=== PATIENT | female | born 1935 | race Caucasian/White ===

== ENCOUNTER 2017-05-29 11:53 | Emergency (ER) | payer MEDICARE, BC ==
[2017-05-29] MEDS ORDERED: NS 0.9% 1000 ML* 1,000 ML IV ONE (11:54)
--- NOTE | 2017-05-29 12:15 | RAD ---
INDICATION: Right-sided weakness COMPARISON: None. TECHNIQUE: Contiguous axial sections of the brain were obtained from the skull base to the vertex without contrast. FINDINGS: The ventricles, cisterns and sulci exhibit symmetrical. There is moderate periventricular and subcortical white matter hypoattenuation most consistent with chronic microvascular disease. A 2 mm focus of hypoattenuation in the left basal ganglia could represent an age indeterminant lacunar infarction or perivascular space. There is a questionable focus of cortical encephalomalacia at the left parietal lobe (image 20 of 36) more superiorly there is asymmetric subcortical hypoattenuation of the posterior left parietal lobe. Elsewhere the owens-white matter differentiation is adequately maintained and there is no sulcal effacement. No significant focal abnormality or mass effect is present. There is no evidence for intracranial hemorrhage. No significant focal osseous abnormality is present. The visualized portion of the paranasal sinuses and mastoid air cells appear clear. IMPRESSION: 1. Potential encephalomalacia involving the left parietal lobe as described above. The chronicity is indeterminate without prior head CTs for comparison. 2. Chronic findings include involutional changes and evidence of chronic microvascular disease. 3. No acute intracranial hemorrhage is seen. Findings were reported to Dr. Raffaele Mills over the telephone at 1207 hours on May 29, 2017
[2017-05-29 12:25] LABS: Hematocrit 42 % (35-47); Hemoglobin 14.6 g/dl (12.0-16.0); Mean Corpuscular HGB Conc 35 g/dl (31-36); Mean Corpuscular Hemoglobin 33 pg (27-31); Mean Corpuscular Volume 96 fL (80-97); Mean Platelet Volume 8 um3 (7.4-10.4); Red Cell Distribution Width 13 % (10.5-15); White Blood Count 5.4 10^3/ul (3.5-10.8)
[2017-05-29 12:45] LABS: Albumin 3.9 g/dL (3.2-5.2); BUN/Creatinine Ratio 23.7 (8-20); Calcium 9.4 mg/dL (8.6-10.3); EGFR African American 74.8 (>60); EGFR Non-African American 58.2 (>60); Globulin 2.7 g/dL (2-4); HDL Cholesterol 54.6 mg/dL; Potassium 3.5 mmol/L (3.5-5.0); Total Bilirubin 0.8 mg/dL (0.2-1.0); Total Protein 6.6 g/dL (6.4-8.9)
[2017-05-29 12:47] LABS: Troponin I 0.01 ng/mL (<0.04)
[2017-05-29] MEDS ORDERED: Alteplase* 100 MG VIAL ONE (12:52)
[2017-05-29] MEDS ORDERED: ALTEPLASE IV ONE ×2 (12:52)
[2017-05-29] MEDS ORDERED: Iodixanol* (CONTRAST) 320 MG/ML 100 ML SDV IV ONE (12:59)
--- NOTE | 2017-05-29 13:19 | RAD ---
INDICATION: Acute neurologic changes COMPARISON: None. TECHNIQUE: Single AP portable view of the chest was obtained. FINDINGS: Image quality is compromised due to the relative inferiority of a portable chest x-ray. The heart and mediastinum exhibit normal size and contour. The linear density at the bilateral lung bases could represent atelectasis. The lungs are otherwise grossly clear. There is no evidence of a large pleural effusion. Visualized bones are normal for the patient's age. IMPRESSION: Possible atelectasis in the bilateral lung bases in this otherwise nonacute chest x-ray.
--- NOTE | 2017-05-29 14:41 | RAD ---
CPT II: CPT II Codes: 3100F INDICATION: Cerebrovascular accident COMPARISON: Same day CT of the brain that demonstrates potential subacute temporoparietal left-sided infarction. TECHNIQUE: A CT angiogram of the head and neck was performed with 80 cc of Visipaque 320. Contiguous axial sections were obtained from the thoracic inlet through the [place]. Images were reconstructed in the sagittal, coronal planes and in a 3-D volume rendered format. The distal cervical internal carotid artery diameter is used as the denominater for stenosis measurement. CTA NECK: The common and internal carotid arteries are patent without hemodynamically significant stenosis. Right: Below the carotid bifurcation the common carotid artery measures just under 9 mm in short axis diameter and the internal carotid artery immediately beyond the bifurcation measures 6 mm in short axis diameter indicating approximately 33% degree stenosis. There is mixed attenuation atherosclerosis at the carotid bulb. Left: Below the carotid bifurcation the common carotid artery measures 8 mm in short axis diameter and immediately beyond the bifurcation the internal carotid artery measures 6 mm in short axis diameter yielding approximately 25% degree stenosis due to mixed attenuation atherosclerosis at the carotid bulb. The left vertebral artery is dominant, but both are patent throughout their course CTA of the brain: There is an abrupt filling defect in the left M1 segment of the middle cerebral artery. The more distal branches of the middle cerebral artery fill diminutively relative to the lateral side. Otherwise the internal carotid, anterior and right middle cerebral arteries appear are patent without high grade stenosis or occlusion. The vertebral, basilar and posterior cerebral arteries appear patent without high grade stenosis or occlusion. The right posterior communicating artery appears to be absent. No focal luminal filling defect, aneurysm or vascular malformation is seen. NON-ARTERIAL FINDINGS: As was seen on the prior CT, there is there is encephalomalacia involving the left posterior parietal and temporal lobes. IMPRESSION: 1. Abrupt filling defect at the M1 segment of the left middle cerebral artery with collateralized filling of the more distal segments. The more distal branch arteries of the left MCA fill diminutiveLY relative to the contralateral hemisphere. 2. There is approximately 33% degree stenosis at the right carotid bulb and 25% degree stenosis of the left.
--- NOTE | 2017-05-29 14:47 | ED ---
Fab [place] Nikita, scribed for Shaun Castorena MD on 05/29/17 at 1212 . Neurological HPI - HPI Summary HPI Summary: DAIANA PENA at 1137 LEVEL 5 CAVEAT This patient is a 81 year old F BIBA to ED with a chief complaint of R-sided weakness since this morning. The second son found the pt on 05/27/17 in the evening confused with altered mental status. The second son says that the mother tends to take too much Gabapentin, and the pts condition might have been due to that. Yesterday morning, the pt was found significantly better and had no unusual activity and no slurred speech. At 1200 yesterday, her second son called the pt who sounded fine over the phone. At 1800 that night, the second son noticed some slurred speech. This morning at 1029, the pt was found with increased slurred speech and later, R-sided weakness. So, the second son called 911. The first son reports that the pt has been having weakness and slurred speech starting on 05/27/17 in the evening and that her condition has worsened since then. - History of Current Complaint Stated Complaint: DAIANA MARIE Time Seen by Provider: 05/29/17 11:54 Hx Obtained From: Patient Hx From Patient Unobtainable Due To: Altered Mental Status Onset/Duration: Sudden Onset, Started days ago, Still Present Timing: Constant Character: Weak - R-sided, Impaired Speech - Allergy/Home Medications Allergies/Adverse Reactions: Allergies Allergy/AdvReac Type Severity Reaction Status Date / Time Penicillins Allergy Unknown Unknown Verified 01/15/15 16:43 Reaction Details PMH/Surg Hx/FS Hx/Imm Hx Endocrine/Hematology History: Reports: Other Endocrine/Hematological Disorders - Hypothyroidism Cardiovascular History: Reports: Hx Hypertension Respiratory History: Reports: Hx Chronic Obstructive Pulmonary Disease (COPD) GI History: Reports: Other GI Disorders - umbilical hernia Neurological History: Reports: Other Neuro Impairments/Disorders - neuropathy (3 -4 years) - Surgical History Other Surgical History: tonsillectomy, hysterectomy Infectious Disease History: Denies: Traveled Outside the [place] in Last 30 Days - Family History Known Family History: Positive: Hypertension Family History: strokes, angina - Social History Alcohol Use: None Substance Use Type: Reports: None Smoking Status (MU): Light Every Day Tobacco Smoker Review of Systems - ROS Summary Review of Systems Summary: LEVEL 5 CAVEAT DAIANA PENA called at 1137 Positive: Weakness - R-sided, Slurred Speech All Other Systems Reviewed And Are Negative: No Physical Exam - Summary Physical Exam Summary: The pt is not oriented. She opened her eyes to verbal stimuli; PERRL. She has dry oral mucosa, positive facial droop on the L side, no carotid bruits, no lymphadenopathy. The lungs, heart, and abdomen are normal. There is no edema noted. NIH scale of 12 with right upper and lower extremity weakness. The skin is dry and intact. Triage Information Reviewed: Yes Vital Signs On Initial Exam: Initial Vitals Temp Pulse Resp BP Pulse Ox 98.6 F 62 20 158/83 96 05/29/17 12:19 05/29/17 12:19 05/29/17 12:19 05/29/17 12:19 05/29/17 12:19 Vital Signs Reviewed: Yes Diagnostics - Vital Signs Vital Signs Temp Pulse Resp BP Pulse Ox 05/29/17 14:20 67 18 159/78 90 05/29/17 14:15 67 20 166/75 90 05/29/17 14:10 64 16 149/88 90 05/29/17 14:06 74 19 166/86 91 05/29/17 14:00 66 14 133/115 97 05/29/17 13:55 67 19 181/87 96 05/29/17 13:50 72 20 190/156 97 05/29/17 13:46 74 18 134/102 98 05/29/17 13:40 64 20 152/92 96 05/29/17 13:35 64 17 106/83 96 05/29/17 13:33 158/134 05/29/17 13:32 64 21 97 05/29/17 13:25 115/82 05/29/17 13:00 61 18 166/73 98 05/29/17 12:30 158/79 05/29/17 12:19 98.6 F 62 20 158/83 96 05/29/17 12:18 68 21 158/83 92 05/29/17 12:16 71 21 93 - Laboratory Lab Results: Lab Results 05/29/17 05/29/17 05/29/17 Range/Units 12:12 12:17 12:17 WBC 5.4 (3.5-10.8) 10^3/ul RBC 4.40 (4.0-5.4) 10^6/ul Hgb 14.6 (12.0-16.0) g/dl Hct 42 (35-47) % MCV 96 (80-97) fL MCH 33 H (27-31) pg MCHC 35 (31-36) g/dl RDW 13 (10.5-15) % Plt Count 232 (150-450) 10^3/ul MPV 8 (7.4-10.4) um3 Neut % (Auto) 76.6 (38-83) % Lymph % (Auto) 13.9 L (25-47) % Bonner % (Auto) 8.3 (1-9) % Eos % (Auto) 0.5 (0-6) % Baso % (Auto) 0.7 (0-2) % Absolute Neuts (auto) 4.1 (1.5-7.7) 10^3/ul Absolute Lymphs (auto) 0.8 L (1.0-4.8) 10^3/ul Absolute Monos (auto) 0.4 (0-0.8) 10^3/ul Absolute Eos (auto) 0 (0-0.6) 10^3/ul Absolute Basos (auto) 0 (0-0.2) 10^3/ul Absolute Nucleated RBC 0 10^3/ul Nucleated RBC % 0 INR (Anticoag Therapy) 0.94 (0.89-1.11) APTT 23.8 L (26.0-36.3) seconds Sodium (133-145) mmol/L Potassium (3.5-5.0) mmol/L Chloride (101-111) mmol/L Carbon Dioxide (22-32) mmol/L Anion Gap (2-11) mmol/L BUN (6-24) mg/dL Creatinine (0.51-0.95) mg/dL Est GFR ( Amer) (>60) Est GFR (Non-Af Amer) (>60) BUN/Creatinine Ratio (8-20) Glucose (70-100) mg/dL POC Glucose (mg/dL) 145 H (70-100) mg/dL Lactic Acid (0.5-2.0) mmol/L Calcium (8.6-10.3) mg/dL Total Bilirubin (0.2-1.0) mg/dL AST (13-39) U/L ALT (7-52) U/L Alkaline Phosphatase (34-104) U/L Troponin I (<0.04) ng/mL Total Protein (6.4-8.9) g/dL Albumin (3.2-5.2) g/dL Globulin (2-4) g/dL Albumin/Globulin Ratio (1-3) Triglycerides mg/dL Cholesterol mg/dL LDL Cholesterol mg/dL HDL Cholesterol mg/dL Blood Type Antibody Screen 05/29/17 05/29/17 05/29/17 Range/Units 12:17 12:17 12:17 WBC (3.5-10.8) 10^3/ul RBC (4.0-5.4) 10^6/ul Hgb (12.0-16.0) g/dl Hct (35-47) % MCV (80-97) fL MCH (27-31) pg MCHC (31-36) g/dl RDW (10.5-15) % Plt Count (150-450) 10^3/ul MPV (7.4-10.4) um3 Neut % (Auto) (38-83) % Lymph % (Auto) (25-47) % Bonner % (Auto) (1-9) % Eos % (Auto) (0-6) % Baso % (Auto) (0-2) % Absolute Neuts (auto) (1.5-7.7) 10^3/ul Absolute Lymphs (auto) (1.0-4.8) 10^3/ul Absolute Monos (auto) (0-0.8) 10^3/ul Absolute Eos (auto) (0-0.6) 10^3/ul Absolute Basos (auto) (0-0.2) 10^3/ul Absolute Nucleated RBC 10^3/ul Nucleated RBC % INR (Anticoag Therapy) (0.89-1.11) APTT (26.0-36.3) seconds Sodium 134 (133-145) mmol/L Potassium 3.5 (3.5-5.0) mmol/L Chloride 94 L (101-111) mmol/L Carbon Dioxide 36 H (22-32) mmol/L Anion Gap 4 (2-11) mmol/L BUN 22 (6-24) mg/dL Creatinine 0.93 (0.51-0.95) mg/dL Est GFR ( Amer) 74.8 (>60) Est GFR (Non-Af Amer) 58.2 (>60) BUN/Creatinine Ratio 23.7 H (8-20) Glucose 153 H (70-100) mg/dL POC Glucose (mg/dL) (70-100) mg/dL Lactic Acid 1.0 (0.5-2.0) mmol/L Calcium 9.4 (8.6-10.3) mg/dL Total Bilirubin 0.80 (0.2-1.0) mg/dL AST 21 (13-39) U/L ALT 12 (7-52) U/L Alkaline Phosphatase 77 (34-104) U/L Troponin I 0.01 (<0.04) ng/mL Total Protein 6.6 (6.4-8.9) g/dL Albumin 3.9 (3.2-5.2) g/dL Globulin 2.7 (2-4) g/dL Albumin/Globulin Ratio 1.4 (1-3) Triglycerides 122 mg/dL Cholesterol 213 mg/dL LDL Cholesterol 134 mg/dL HDL Cholesterol 54.6 mg/dL Blood Type B Positive Antibody Screen Negative Result Diagrams: 05/29/17 12:17 05/29/17 12:17 Lab Statement: Any lab studies that have been ordered have been reviewed, and results considered in the medical decision making process. - Radiology CXR Radiology Interpretation Completed By: Radiologist - Possible atelectasis in the bilateral lung bases in this otherwise nonacute chest x-ray. ED physician has reviewed this radiology report and agrees. - CT Brain CT Interpretation Completed By: Radiologist - 1. Potential encephalomalacia involving the left parietal lobe as described above. The chronicity is indeterminate without prior head CTs for comparison. 2. Chronic findings include involutional changes and evidence of chronic microvascular disease. 3. No acute intracranial hemorrhage is seen. ED physician has reviewed this radiology report and agrees. Head CTA CT Interpretation Completed By: Radiologist - 1. Abrupt filling defect at the M1 segment of the left middle cerebral artery with collateralized filling of the more distal segments. The more distal branch arteries of the left MCA fill diminutiveLY relative to the contralateral hemisphere. 2. There is approximately 33% degree stenosis at the right carotid bulb and 25% degree stenosis of the left. ED physician has reviewed this radiology report and agrees. - EKG 1209 Cardiac Rate: NL - 63 bpm EKG Interpretation: occasional PVC, no ST elevations NIH Scale - NIH Scale Level of Consciousness: Alert/Keenly Responsive Ask Patient the Month and His/Her Age: Neither Correct/Aphasic Ask Pt to Open/Close Eyes and Straddle Carrier Operator/Release Non-Paretic Hand: Neither Correctly Best Gaze (Only Horizontal Eye Movement): Normal Visual Field Testing: No Visual Loss Facial Paresis-Pt to Smile & Close Eyes or Grimace Symmetry: Minor Paralysis Motor Function - Right Arm: Drifts LT 10 seconds Motor Function - Left Arm: No Drift-Holds 10 Seconds Motor Function - Right Leg: Drifts LT 10 seconds Motor Function - Left Leg: No Drift-Holds 10 Seconds Limb Ataxia-Must be out of Proportion to Weakness Present: Present in One Limb Sensory (Use Pinprick to Test Arms/Legs/Trunk/Face): Pinprick Less on Affected Best Language (Describe Picture, Name Items): Some Loss Dysarthria (Read Several Words): Unintelligible or Mute Extinction and Inattention: No Abnormality Total Score: 12 Re-Evaluation - Re-Evaluation First Eval Re-Evaluation Time: 13:55 Change: Worse Comment: Pt was not doing better. Increased lethargy and weakness. Second Eval Re-Evaluation Time: 14:00 Change: Improved Comment: After tPA, the pt was more alert. Third Eval Re-Evaluation Time: 14:02 Change: Improved Comment: Pt was able to speak full sentences. Fourth Eval Re-Evaluation Time: 14:10 Change: Improved Comment: Pt was able to move her upper extremities. Course/Dx - Course Assessment/Plan: CODE PENA at 1137. LEVEL 5 CAVEAT. This patient is a 81 year old F BIBA to ED with a chief complaint of R-sided weakness since this morning. The second son found the pt on 05/27/17 in the evening confused with altered mental status. The second son says that the mother tends to take too much Gabapentin, and the pts condition might have been due to that. Yesterday morning, the pt was found significantly better and had no unusual activity and no slurred speech. At 1200 yesterday, her second son called the pt who sounded fine over the phone. At 1800 that night, the second son noticed some slurred speech. This morning at 1029, the pt was found with increased slurred speech and later, R-sided weakness. So, the second son called 911. The first son reports that the pt has been having weakness and slurred speech starting on in the evening and that her condition has worsened since then. NIH stroke scale of 12; weakness on right upper and lower extremities. Telestroke at 1235. Consulted Dr. Burrell at 1211 who says to do a CTA now, and schedule an MRI and echo on Wednesday. He suggests to admit the pt. Brain CT reveals 1. Potential encephalomalacia involving the left parietal lobe as described above. The chronicity is indeterminate without prior head CTs for comparison. 2. Chronic findings include involutional changes and evidence of chronic microvascular disease. 3. No acute intracranial hemorrhage is seen. CXR reveals Possible atelectasis in the bilateral lung bases in this otherwise nonacute chest x-ray. Head CTA reveals 1. Abrupt filling defect at the M1 segment of the left middle cerebral artery with collateralized filling of the more distal segments. The more distal branch arteries of the left MCA fill diminutiveLY relative to the contralateral hemisphere. 2. There is approximately 33% degree stenosis at the right carotid bulb and 25% degree stenosis of the left. ED physician has reviewed this radiology report and agrees. EKG reveals sinus rhythm at [address] Fritz at [facility] ED in [place] at 1245 who accepts pt for transfer. Discussed the case with Dr. Fritz at 1321 during Telestroke. Pt will be transferred to [facility] ER via helicopter. Initially we have very conflicted stories from one of the sons. Therefore, at that point, I did not think that the pt was qualified for tPA. I discussed this with Dr. Fritz who agreed. Actually the second brother who went to see the pt, stated the onset of symptoms was at 1029. Therefore I contacted Dr. Fritz from [place] and after discussing the case with him, he requested to do the neuro telemedicine. After he interviewed the pt, we both decided the pt was a candidate for tPA. Therefore the pt was given the tPA without any complications. Blood test was without any significant abnormalities. [place] is at 153. Head CT shows no acute intracranial pathology. After the tPA was given, the pt was more alert, she was able to speak full sentences, and was able to move her right arm. I discussed again with Dr. Weiner and he accepted for the pt to be airlifted to [facility]. At this time the pt is hemodynamically stable, and alert and oriented x1. - Differential Dx Differential Diagnoses Neuro: Positive: Cerebrovascular Accident, Seizure Disorder, Transient Ischemic Attack, Vasovagal Reaction - Diagnoses Provider Diagnoses: ischemic cva s/p TBA - Physician Notifications Discussed Care Of Patient With: Gil Burrell Time Discussed With Above Provider: 12:11 Instructed by Provider To: Other - Consulted Dr. Burrell who says to do a CTA now, and schedule an MRI and echo on Wednesday. He suggests to admit the pt. - Critical Care Time Critical Care Time: 75-104 min Discharge - Discharge Plan Condition: Stable Disposition: OTHER Discharge Disposition Comment: Transfer to [facility] ED Referrals: No Primary Care Phys,NOPCP [Primary Care Provider] - The documentation as recorded by the Fab hatch Nikita accurately reflects the service I personally performed and the decisions made by me, Shaun Castorena MD.
[2017-05-29 15:10] VITALS: BP 161/88
== END 2017-05-29 15:13 ==
LOC: ED 11:53
DX: I63.8 Other cerebral infarction (principal); R53.1 Weakness
CPT/HCPCS: 36415; 70450; 70496; 70498; 71010; 80053; 80061; 83605; 84484; 85025; 85610; 85730; 86850; 86900; 86901; 93005; 99285; J2997; Q9967